=== PATIENT | male | born 2000 | race Caucasian/White ===

== ENCOUNTER 2019-01-13 03:08 | Emergency (ER) | payer OTHER ==
[2019-01-13] MEDS ORDERED: oxyCODONE/Acetamin 5/325 MG* TAB PO ONE (04:30)
--- NOTE | 2019-01-13 04:38 | ED ---
Adult Trauma - HPI Summary HPI Summary: This patient is a 18 year old male presenting to [facility] with a chief complaint of traumatic left hand injury. The patient slammed the fingers on his left hand in a door and he states his third and fourth digits are injured on that hand. He states he has lacerations on these digits and that he can see bone on his fourth digit. He rates his pain 8/10 in severity. - History of Current Complaint Chief Complaint: EDExtremityUpper Stated Complaint: SLAMMED FINGER IN DOOR, CUT FINGER PER PT Time Seen by Provider: 01/13/19 04:31 Hx Obtained From: Patient Mechanism of Injury: Blunt Trauma Onset/Duration: Started Hours Ago, Traumatic Onset of Pain: Hours Onset Severity: Moderate Current Severity: Moderate Pain Intensity: 8 Pain Scale Used: 0-10 Numeric Location: Extremities - Allergy/Home Medications Allergies/Adverse Reactions: Allergies Allergy/AdvReac Type Severity Reaction Status Date / Time No Known Allergies Allergy Verified 01/13/19 03:10 PMH/Surg Hx/FS Hx/Imm Hx Cardiovascular History: Denies: Hx Hypertension Respiratory History: Denies: Hx Asthma Infectious Disease History: No Infectious Disease History: Denies: Traveled Outside the [place] in Last 30 Days - Family History Known Family History: Negative: Cardiac Disease - Social History Alcohol Use: Weekly Substance Use Type: Reports: Marijuana Smoking Status (MU): Never Smoked Tobacco Review of Systems Negative: Fever Positive: Other - Left hand pain All Other Systems Reviewed And Are Negative: Yes Physical Exam - Summary Physical Exam Summary: VITAL SIGNS: Reviewed. GENERAL: Patient is a well-developed and nourished MALE who is lying comfortable in the stretcher. Patient is not in any acute respiratory distress. HEAD AND FACE: No signs of trauma. No ecchymosis, hematomas or skull depressions. No sinus tenderness. EYES: PERRLA, EOMI x 2, No injected conjunctiva, no nystagmus. EARS: Hearing grossly intact. Ear canals and tympanic membranes are within normal limits. MOUTH: Oropharynx within normal limits. NECK: Supple, trachea is midline, no adenopathy, no JVD, no carotid bruit, no c- spine tenderness, neck with full ROM. CHEST: Symmetric, no tenderness at palpation LUNGS: Clear to auscultation bilaterally. No wheezing or crackles. CVS: Regular rate and rhythm, S1 and S2 present, no murmurs or gallops appreciated. ABDOMEN: Soft, non-tender. No signs of distention. No rebound no guarding, and no masses palpated. Bowel sounds are normal. EXTREMITIES: FROM in all major joints, no edema, no cyanosis or clubbing. Third digit left hand laceration with loss of tissue at the tip of the finger and active bleeding. Fourth finger partial nail avulsion with bleeding and subungual hematoma. NEURO: Alert and oriented x 3. No acute neurological deficits. Speech is normal and follows commands. SKIN: Dry and warm Triage Information Reviewed: Yes Vital Signs On Initial Exam: Initial Vitals Temp Pulse Resp BP Pulse Ox 98.5 F 69 16 130/84 96 01/13/19 03:08 01/13/19 03:08 01/13/19 03:08 01/13/19 03:08 01/13/19 03:08 Vital Signs Reviewed: Yes Procedures - Laceration/Wound Repair 1 Location: upper extremity - Third digit left hand Anesthesia: Digital, 2.0%, Lido Length, Depth and Shape: 1 inche laceration with loss of tissue. Suture Type: Prolene Number of Sutures: 6 - No bone exposed. Sterile Dressing Applied?: Yes - Coban 2 Location: upper extremity - 4th digit left hand Length, Depth and Shape: Partial nail avulsion and subungual hematoma kept in place with stitches. Suture Type: Prolene Number of Sutures: 3 Diagnostics - Vital Signs Vital Signs Temp Pulse Resp BP Pulse Ox 01/13/19 03:08 98.5 F 69 16 130/84 96 - Laboratory Lab Statement: Any lab studies that have been ordered have been reviewed, and results considered in the medical decision making process. - Radiology Left Hand XR Radiology Interpretation Completed By: ED Physician Summary of Radiographic Findings: Tuft fracture of the middle of the third distal phalyx. Pending official radiologist report. Adult Trauma Course/Dx - Course Course Of Treatment: This patient is a 18 year old male presenting to [facility] with a chief complaint of traumatic left hand injury. A laceration on his third digit of his left hand with loss of tissue was repaired with 6 sutures, a nail avulsion on the fourth digit of his left hand was repaired with 3 sutures. Left hand XR shows a Tuft fracture of the middle of the third distal phalyx. He will be referred to a hand surgeon for follow up. A plan for discharge was discussed with the patient and he was agreeable with this plan. - Diagnoses Provider Diagnoses: Finger laceration, Open fracture of finger, Subungual hematoma of finger Discharge - Sign-Out/Discharge Documenting (check all that apply): Patient Departure - Discharge Patient Received Moderate/Deep Sedation with Procedure: No - Discharge Plan Condition: Stable Disposition: HOME Prescriptions: Cephalexin CAP* [Keflex CAP*] 500 mg PO QID #30 cap oxyCODONE/Acetamin 5/325 MG* [Percocet 5/325 TAB*] 1 tab PO Q6H PRN #14 tab MDD 4 PRN Reason: Pain Patient Education Materials: Finger Laceration (ED), Finger Fracture (ED), Subungual Hematoma (ED) Referrals: Concha Szymanski MD [Medical Doctor] - 1 Day Additional Instructions: Follow up with hand surgeon on Monday. Return to ED with new or worsening symptoms. Use a sling to elevate the hand. - Attestation Statements Document Initiated by Scribe: Yes Documenting Scribe: Luis Carbajal Provider For Whom Guero is Documenting (Include Credential): Jeffrey Singh MD Scribe Attestation: Luis Lobato, scribed for Jeffrey Singh MD on 01/13/19 at 0627. Status of Scribe Document: Ready
[2019-01-13] MEDS ORDERED: Lidocaine 2% EPI 1:200000 MPF*10-20 ML VIAL ONE (05:13)
[2019-01-13] MEDS ORDERED: Lidocaine 2% MPF* 2 ML VIAL ONE (05:20)
[2019-01-13] MEDS ORDERED: Bacitracin OINTMENT* 0.5% 0.5 oz TUBE ONE (05:58)
[2019-01-13] MEDS ORDERED: Cephalexin CAP* 500 MG PO ONE (06:08)
[2019-01-13] MEDS ORDERED: oxyCODONE TAB* 5 MG TAB PO ONE (06:29)
[2019-01-13 07:14] VITALS: BP 151/86
== END 2019-01-13 07:05 | disposition home or self-care (01) ==
LOC: ED 03:08
DX: S62.635B Displaced fracture of distal phalanx of left ring finger, initial encounter for open fracture (principal); S60.142A Contusion of left ring finger with damage to nail, initial encounter; W23.0XXA Caught, crushed, jammed, or pinched between moving objects, initial encounter
CPT/HCPCS: 12001; 99283; A9270-GY